=== PATIENT | female | born 1975 | race Caucasian/White ===

== ENCOUNTER → 2017-01-31 | Day surgery (SDC) | payer OTHER ==
[~2017-01-31] MED LIST: ACETAMINOPHEN 325 MG TAB ONE; BUPIVACAINE HCL PF 0.25% 30 ML VIAL ONE; KETOROLAC TROMETHAMINE 30 MG/ML (IVP) VIAL IV PUSH ONE; LACTATED RINGER'S 1000 ML INJ 1,000 ML ONE; MACR100C PO; MIDAZOLAM HCL 2 MG/2 ML VIAL ONE; ONDANSETRON HCL 4 MG/2 ML VIAL IV PUSH ONE; PROPOFOL 200 MG/20 ML AMP IV ONE; ceFAZolin 2 GM PREMIX 50 ML ONE
--- NOTE | 2017-02-05 10:50 | MP ---
cc: EMILY GALINDO [facility] DATE OF SURGERY: 01/31/2017 PREOPERATIVE DIAGNOSIS Left hallux rigidus. POSTOPERATIVE DIAGNOSIS Left hallux rigidus. PROCEDURE PERFORMED Left first metatarsal exostectomy with interpositional arthroplasty. SPECIMEN None. ESTIMATED BLOOD LOSS Less than 30 mL. MATERIALS USED GraftJacket maximum force averaging 1.75 mm thickness. COMPLICATIONS None. ANESTHESIA General. INJECTABLES 30 cc of 0.25% Marcaine plain. TOURNIQUET TIME 46 minutes at a setting of 250 mmHg. DISPOSITION PACU then discharge home once stable per same-day surgery criteria. JUSTIFICATION FOR PROCEDURE A 41-year-old female with worsening joint pain. X-rays showed osteoarthritic findings with a fractured osteophyte of the dorsal aspect of the first metatarsal proximal phalanx base, and a large exostosis at the level of the first MPJ. We devised a plan to move forward with surgical resection of the osteophyte and if there was significant cartilaginous loss the patient may need a first MPJ fusion. The patient was educated on the possibility of recurrence and the need for more surgery at a later date. No guarantees were given or implied. Prophylactic antibiotics were given. PROCEDURE IN DETAIL Under mild sedation the patient was brought into the operating room and placed on the operating table in supine position. Following the induction of general anesthesia, local anesthesia was obtained about the forefoot utilizing standard block fashion. The left lower extremity was scrubbed, prepped and draped in the usual aseptic fashion. The foot was elevated and exsanguinated and the previously placed mid ankle tourniquet was inflated to 215 mmHg. An incision was made over the dorsal aspect of the first MPJ slightly medial to the extensor hallucis longus. Sharp and blunt dissection was carried down to the joint capsule. Bovie ligation of venous structures took place as deemed appropriate. A linear capsulotomy was performed of the vertical arm exposing a large dorsal osteophyte. Upon removing the large dorsal osteophyte of the first MPJ head, there was noted to be only approximately dorsal one-third of cartilaginous loss. There was no osteochondral lesion, cystic changes, and the base of the proximal phalanx appeared to have intact cartilage. At this time two holes were then placed at the dorsal aspect of the first metatarsal serving as suture holes for fixation of the interpositional arthroplasty graft. The graft was then sutured and then pulled through the holes and dorsally anchored covering circumferentially the distal first metatarsal heads. The first MPJ was brought through range of motion. There was noted to be good range of motion with no osseous abrupt stop, more of a soft tissue cushion upon extreme dorsiflexion. There was no migration of the graft. It was seated nicely. X-rays were taken revealing significant improvement of the joint contour. The wound was flushed with copious amounts of normal saline. The joint capsule was closed utilizing Vicryl. The skin was closed utilizing nylon. Upon relieving the tourniquet there was a prompt hyperemic response to all digits without any delayed capillary fill time. A bulky bandage was placed. The patient was positioned within a controlled ankle motion boot. The patient transferred from the OR to PACU with all vital signs stable. The patient is partial weight bear to tolerance. She will ice and elevate. I will see the patient within 3-5 days. MURIEL Rodriguez/SVETLANA /1:31 PM /10:38 AM
== END | disposition home or self-care (01) ==
LOC: ESDC 10:06
PROVIDERS: ATTEND Podiatrist Foot & Ankle Surgery
DX: M20.22 Hallux rigidus, left foot (principal)
CPT/HCPCS: 01480; 15275; 28289; 73630; 76000; J0690; J1885; J2250; J2405; J3010; J7120; Q4107